=== PATIENT | female | born 1965 | race Caucasian/White ===

== ENCOUNTER → 2016-12-10 | Outpatient (CLI) | payer OTHER ==
--- NOTE | 2016-12-10 12:47 | MM ---
Reason for exam: screening (asymptomatic). Last mammogram was performed 3 years and 3 months ago. History: Family history of breast cancer in maternal aunt. Physical Findings: A clinical breast exam by your physician is recommended on an annual basis and results should be correlated with mammographic findings. MG Screening Mammo w CAD Bilateral CC and MLO view(s) were taken. Prior study comparison: December 15, 2014, mammogram, performed at [facility]. September 06, 2013, mammogram, performed at [facility]. There are scattered fibroglandular densities. There is no discrete abnormality. ASSESSMENT: Negative, BI-RAD 1 RECOMMENDATION: Routine screening mammogram of both breasts in 1 year.
== END | disposition home or self-care (01) ==
LOC: RADMAMWWP 10:02
PROVIDERS: ATTEND Internal Medicine
DX: Z12.31 Encounter for screening mammogram for malignant neoplasm of breast (principal)

== ENCOUNTER → 2018-05-14 | Outpatient (CLI) | payer BC ==
--- NOTE | 2018-05-17 11:21 | MM ---
Reason for exam: screening (asymptomatic). Last mammogram was performed 1 year and 5 months ago. History: Patient is postmenopausal. Family history of breast cancer in maternal aunt. Physical Findings: A clinical breast exam by your physician is recommended on an annual basis and results should be correlated with mammographic findings. MG 3D Screening Mammo W/Cad Bilateral CC and MLO view(s) were taken. Prior study comparison: December 10, 2016, bilateral MG screening mammo w CAD. December 15, 2014, mammogram, performed at [facility]. The breast tissue is almost entirely fat. No significant changes when compared with prior studies. ASSESSMENT: Benign, BI-RAD 2 RECOMMENDATION: Routine screening mammogram of both breasts in 1 year.
== END ==
LOC: RADMAMWWP 14:52
PROVIDERS: ATTEND Internal Medicine
DX: Z12.31 Encounter for screening mammogram for malignant neoplasm of breast (principal)
CPT/HCPCS: 77063; 77067

== ENCOUNTER → 2018-11-02 | Outpatient (CLI) | payer BC ==
--- NOTE | 2018-11-02 17:19 | CONS ---
CONSULTATION REASON FOR CONSULTATION: Insomnia. This is a 52-year-old female patient who is coming in for chronic insomnia management and treatment. The patient reports that she has chronic insomnia that has been going on for the past 15 years. She also has multiple other medical problems and comorbidities, most significant of which is history of depression, history of fibromyalgia, history of chronic anxiety. In regard to her depression, the patient has been working with her primary care physician, Dr. Polanco. More recently, due to active symptoms of depression, the patient has been placed on Cymbalta, and her dose has been increased up to 60 mg twice a day. She is feeling better. No feeling of worthlessness. Her mood seems to be much more elevated. As far as fibromyalgia, she is currently taking Lyrica 50 mg in the morning, and she takes Flexeril 10 mg at bedtime. On and off she takes Xanax for anxiety. In terms of chronic insomnia, the patient has been taking Lunesta 3 mg at bedtime. She typically tries to go to bed around 10 or 11 p.m. She takes her sleeping pills and the Flexeril after she goes to bed. She has no difficulty initiating sleep; however, 2 hours into sleep she will wake up. Sometimes she is successful in going back to sleep; other times she is unable to. She stays in bed until 6:00 in the morning. She averages somewhere between 4 and 5 hours of sleep and she feels that she needs to sleep more to get refreshed. During the day she does not take any naps. She is very busy doing other stuff, whether it is in the house or outside the house. No grinding of the teeth. Occasional restlessness in the lower extremities. She has been given Requip in the past, with bad side effects, and the patient ultimately quit the treatment. No history of sleepwalking or sleeptalking. She has chronic anxiety and occasional panic attacks. She also has occasional nighttime heartburn. She has also done sleepwalking in the past, probably related to Lunesta side effects. Her current Coalinga score is 3. She has maintained her weight; her weight is about 220. No snoring or gasping for air. No features of obstructive sleep apnea. She wakes up at least 4 to 6 times in the middle of the night, especially in the morning hours, and she stays in bed even after being awake. No history of motor vehicle accident because of feeling drowsy or sleepy. She has tried reading, which has calmed her down and helped with sleep induction. She has also tried to listen to music and TV, which made her sleep quality worse. No nighttime shortness of breath or chest pain. PAST MEDICAL HISTORY: 1. Depression. 2. Fibromyalgia. 3. Chronic anxiety. 4. Chronic insomnia. PAST SURGICAL HISTORY: Includes: 1. Left heel spur removed. 2. Lap band insertion and removal back in 2002 and 2005. 3. Partial hysterectomy. 4. Cholecystectomy. 5. Sleeve gastrectomy. 6. Kidney stone resection. DRUG ALLERGIES: SULFA. OUTPATIENT MEDICATION LIST: Includes: 1. Cymbalta 60 mg b.i.d. 2. Lyrica 50 mg p.o. daily. 3. Flexeril 10 mg at bedtime. 4. Xanax 0.25 p.r.n. 5. Lunesta 3 mg at bedtime. 6. Hydrocodone as needed. SOCIAL HISTORY: No history of alcoholism. No history of substance abuse. No history of smoking. No history of excessive alcohol ingestion. FAMILY HISTORY: Positive for coronary artery disease in her parents. REVIEW OF SYSTEMS: Twelve-point review of systems was done. Positive findings were all mentioned above in the history of present illness. The patient denies having any vivid dreams. No sleep paralysis. No hallucinations. No unusual behavior or movements. No seizure activity. No altered mentation. No chest pain. No shortness of breath. No cough or sputum production at nighttime. No heartburn. No falls. No unusual behavior. No suicidal ideation. No homicidal ideation. No crying episodes. PHYSICAL EXAMINATION: BP is 104/61, pulse 95, respirations 18, temperature 98.2, saturation 98% on room air. Height is 5 feet 5 inches. Weight is 222 and BMI 36.3. Coalinga score is 3. Neck size is 14-1/3 inches. GENERAL APPEARANCE: Calm, comfortable. Head is atraumatic, normocephalic. NECK: Supple. No JVD. No goiter or neck masses. LUNGS: Clear to auscultation. Heart sounds are regular rate and rhythm. Normal S1, S2. No S3, S4. No murmurs. ABDOMEN: Soft, nontender. No organomegaly. EXTREMITIES: No edema. No cyanosis or clubbing. Neurologically the patient is alert and oriented x3. No focal neurological deficit. PSYCHIATRIC: Positive for chronic depression and anxiety. IMPRESSION: 1. Chronic insomnia. The patient has comorbid insomnia, probably related to chronic depression, fibromyalgia and anxiety. In addition, the patient has misconceptions about sleep measures in general, and she has developed poor sleep habits which could have exacerbated her chronic insomnia. In summary, this patient has chronic comorbid insomnia and she is able to induce sleep; however, she has issues with sleep maintenance even while being on Lunesta 3 mg at bedtime. 2. Depression. On Cymbalta. 3. Fibromyalgia. On a combination of Lyrica and Flexeril. 4. Chronic anxiety. PLAN: I had a lengthy discussion with the patient. I discussed the treatment of chronic insomnia and I alluded specifically to cognitive behavioral therapy and pharmacotherapy. She was made aware that cognitive behavioral therapy has demonstrated equivalent results to pharmacotherapy, and the treatment effects of cognitive behavioral therapy are long-lasting. She was very interested in CBI, which is cognitive behavioral therapy. I went over sleep restrictions and stimulus control. These are the two measures that we need to implement in this patient to improve her symptoms of chronic insomnia. I gave her a sleep diary. I asked her to get out of bed if she is unable to fall asleep again to improve her sleep efficiency. Her time to go to bed will be kept somewhere between 11 p.m. and midnight, and she has to get out of bed around 5 to 6 a.m. in the morning. She will maintain a sleep diary to maintain her sleep efficiency above 90%. Will continue taking Lunesta 3 mg at bedtime with the understanding that this can cause some sleepwalking. Will move the Lyrica dose to nighttime and will take a Flexeril at bedtime also. Continue Cymbalta and take it in the morning. Will see her back in 4 weeks' time. I am hoping the measures of stimulus control and sleep restriction should improve the patient's sleep efficiency in general and improve her sleep consolidation at nighttime. She will be implementing good sleep hygiene measures. She will be avoiding any form of caffeinated beverages late in the evening or in the afternoon. All her sleep hygiene measures were discussed. No need for a sleep study at this point in time. She will be re-evaluated in 4 weeks' time, and I am hoping that we should be able to get her in a better sleep condition with cognitive behavioral therapy and keeping the same medication regimen for now. MMLAURYN / IJN: [id number] /
== END | disposition home or self-care (01) ==
LOC: SLEEP 14:06
PROVIDERS: ATTEND Internal Medicine Critical Care Medicine
DX: G47.00 Insomnia, unspecified (principal); F32.9 Major depressive disorder, single episode, unspecified; F41.9 Anxiety disorder, unspecified; M79.7 Fibromyalgia; Z79.899 Other long term (current) drug therapy
CPT/HCPCS: 99211

== ENCOUNTER → 2018-12-16 | Outpatient (CLI) | payer BC ==
[2018-12-16 11:44] LABS: Basophils # (A) 0.1 k/uL (0-0.2); Basophils % (A) 1 %; Eosinophils # (A) 0.3 k/uL (0-0.7); Eosinophils % (A) 7 %; HCT 40.1 % (34.0-46.0); HGB 12.5 gm/dL (11.4-16.0); Hypochromasia Slight; Lymphocytes # (A) 1.6 k/uL (1.0-4.8); Lymphocytes % (A) 38 %; MCH 25.9 pg (25.0-35.0); MCV 83.5 fL (80.0-100.0); Mean Platelet Volume 6.6; Monocytes # (A) 0.3 k/uL (0-1.0); Monocytes % (A) 6 %; Neutrophils # (A) 1.9 k/uL (1.3-7.7); Neutrophils % (A) 44 %; Platelet Count 321 k/uL (150-450); RBC 4.81 m/uL (3.80-5.40); RDW 14.7 % (11.5-15.5); WBC 4.3 k/uL (3.8-10.6)
[2018-12-16 13:57] LABS: Erythrocyte Sedimentation Rate 15 mm/hr (0-20)
[2018-12-16 15:58] LABS: Vitamin D 25 Hydroxy 15.3 ng/mL (30.0-100.0)
[2018-12-16 16:02] LABS: Albumin 4.2 g/dL (3.80-4.90); Albumin/Globulin Ratio 1.56 (1.60-3.17); Anion Gap 8.5 mmol/L (4.00-12.00); Calcium 9.1 mg/dL (8.7-10.3); Carbon Dioxide 27.5 mmol/L (21.6-31.8); Globulin 2.7 g/dL (1.6-3.3); LDL Cholesterol,Calculated 105.4 mg/dL (0.0-131.0); Phosphorus 3.9 mg/dL (2.4-5.1); Potassium 4.1 mmol/L (3.5-5.5); Total Bilirubin 0.4 mg/dL (0.3-1.2); Total Protein 6.9 g/dL (6.2-8.2); VLDL Calculation 49.6 mg/dL (5.00-40.00)
== END | disposition home or self-care (01) ==
LOC: LABWHC1 11:05
PROVIDERS: ATTEND Internal Medicine
DX: E88.81 Metabolic syndrome and other insulin resistance (principal); M79.7 Fibromyalgia; E55.9 Vitamin D deficiency, unspecified
CPT/HCPCS: 36415; 80053; 80061; 80069; 82306; 85025; 85652; 86038

== ENCOUNTER → 2018-12-21 | Outpatient (CLI) | payer BC ==
--- NOTE | 2018-12-21 20:25 | PN ---
PROGRESS NOTE This patient is a 53-year-old female who was seen in consultation for chronic insomnia. The patient's chronic insomnia is related to chronic depression, fibromyalgia and anxiety. She also had some misconceptions about sleep measures in general. During her last visit, I noted that the patient was taking a combination of Flexeril and Lyrica for fibromyalgia and she was on Cymbalta for depression and was taking Lunesta 3 mg for insomnia. I counseled her mainly on cognitive behavioral therapy. I explained to her various options, such as sleep restriction and stimulus control. She was implementing these measures and she was doing well with the help of her other medications until around a month ago, when she was unable to refill her Lyrica and Lunesta, and her symptoms got worse. During this time, she introduced CBD oil, which she takes in the evening, and this has a lot of her anxiety and pain and her symptoms of insomnia. Nevertheless, she is unable to achieve a good 5-6 hours, especially now that she does not have her Lunesta refilled. She is still going to bed late, around 2 or 3 a.m., and she is getting up between 7 and 8 a.m. in the morning. She is averaging 4-5 hours of sleep, and she feels that she was doing much better while on the pharmacotherapy and cognitive behavior therapy combination as advised for her earlier. REVIEW OF SYSTEMS: Fourteen-point review of systems was done. The positive findings are all mentioned in the history of present illness. As mentioned earlier, she has history of depression, yet her symptoms are not active for now. She has chronic fibromyalgia-related pain. No active anxiety symptoms. Insomnia is still active. No nausea or vomiting. No abdominal pain. No chest pain. No heartburn at nighttime. No recent weight gain or weight loss. No substance abuse. PHYSICAL EXAMINATION: BP is 145/97, pulse 79, respirations 16, temperature 98.0, saturation 95% on room air. Weight is 223. Height is 5 feet 5 inches and BMI 36.5. Hubbard score is 3. GENERAL APPEARANCE: Calm, comfortable. Head is atraumatic, normocephalic. NECK: Supple. There is no JVD. No goiter or neck masses. Mallampati class IV. LUNGS: Clear to auscultation. HEART: Heart sounds are regular rate and rhythm. Normal S1, S2. No S3, S4. No murmurs. ABDOMEN: Soft, nontender. No organomegaly. EXTREMITIES: No edema. No cyanosis or clubbing. NEUROLOGIC: Alert and oriented x3. No focal neurological deficits. PSYCHIATRIC: Negative for acute psychosis. Positive for depression and anxiety. IMPRESSION: 1. Chronic insomnia. As mentioned, the patient has chronic comorbid insomnia related to comorbidities which include fibromyalgia, anxiety and depression. In addition, she has sleep misconceptions and poor sleep hygiene measures. 2. Depression. 3. Fibromyalgia. 4. Chronic anxiety. PLAN: Refill the patient's Lunesta and Lyrica. Lunesta was restarted at 3 mg to be taken at bedtime. In addition to that, she will be taking Lyrica 50 mg p.o. b.i.d. regarding her fibromyalgia. In regards to her chronic insomnia, we are still implementing cognitive behavioral therapy. We are still implementing sleep restriction and stimulus control. The desired time to go to sleep is still midnight, and she will be getting out of bed around 6 a.m. in the morning. CBD oil has also helped her in sleep induction, maintenance and control of her anxiety and depression and pain. I do not see any contraindication of taking her medication in addition to CBD oil. Implement good sleep hygiene measures. Avoid naps during the day. We will continue to follow. She will continue filling up her sleep diary and she will see me back in a few months' time in followup. MMKAYLEEL / GENESISN: [id number] /
== END ==
LOC: SLEEP 13:25
PROVIDERS: ATTEND Internal Medicine Critical Care Medicine
DX: F51.04 Psychophysiologic insomnia (principal); M79.7 Fibromyalgia; F41.9 Anxiety disorder, unspecified; F32.9 Major depressive disorder, single episode, unspecified; Z79.899 Other long term (current) drug therapy

== ENCOUNTER → 2019-01-13 | Outpatient (CLI) | payer BC ==
--- NOTE | 2019-01-14 08:19 | CT ---
EXAMINATION TYPE: CT abdomen pelvis w con DATE OF EXAM: 01/13/2019 COMPARISON: None HISTORY: Umbilical hernia without obstruction CT DLP: 1916 mGycm CONTRAST: CT scan of the abdomen and pelvis is performed with Oral Contrast and with IV Contrast, patient injec lisa with 100ml mL of Isovue 300. FINDINGS: LUNG BASES-: No visible nodule. No infiltrate. LIVER/GB: The gallbladder surgically absent. There is evidence of hepatic steatosis. No space occu pying hepatic lesion. Biliary tree is of normal caliber. PANCREAS: No inflammation. No distinct mass. SPLEEN: No splenic enlargement. No lesion seen. ADRENALS: No nodule. No thickening. KIDNEYS/BLADDER: No hydronephrosis. No nephrolithiasis. No distinct renal mass. Urinary bladder g rossly unremarkable. BOWEL: Normal appendix. Normal bowel caliber. No inflammation. Hiatal hernia noted. GENITAL ORGANS: No gross abnormality. LYMPH NODES: No greater than 1cm abdominal or pelvic lymph nodes are appreciated. AORTA: No significant abnormality. OSSEOUS STRUCTURES: No significant abnormality is seen. OTHER: Small fat-containing umbilical hernia. IMPRESSION: 1. Patent steatosis. 2. Small fat-containing umbilical hernia. 3. Hiatal hernia noted.
== END | disposition home or self-care (01) ==
LOC: RADCTMAIN 15:28
PROVIDERS: ATTEND Surgery
DX: K42.9 Umbilical hernia without obstruction or gangrene (principal); K44.9 Diaphragmatic hernia without obstruction or gangrene; K76.0 Fatty (change of) liver, not elsewhere classified
CPT/HCPCS: 74177; Q9967

== ENCOUNTER → 2019-01-31 | Outpatient (CLI) | payer BC ==
[2019-01-31 14:48] LABS: HCT 37.2 % (34.0-46.0); HGB 11.8 gm/dL (11.4-16.0); Hypochromasia Slight; MCH 26.1 pg (25.0-35.0); MCHC 31.9 g/dL (31.0-37.0); Mean Platelet Volume 6.8; Platelet Count 334 k/uL (150-450); RBC 4.53 m/uL (3.80-5.40); RDW 15.2 % (11.5-15.5)
== END | disposition home or self-care (01) ==
LOC: LABPAT 14:05
PROVIDERS: ATTEND Surgery
DX: Z01.812 Encounter for preprocedural laboratory examination (principal)
CPT/HCPCS: 36415; 85027

== ENCOUNTER 2019-02-02 06:33 | Observation (INO) | payer BC ==
[~2019-02-02 06:33] MED LIST: DEXAMETHASONE SOD PHOSPHATE 10 MG/ML 1 ML VIAL IV ONE; HEPARIN SODIUM,PORCINE 5,000 UNIT/ML 1 ML VIAL SQ ONE; LIDOCAINE 1% 20 ML VIAL (10MG/ML) FOR IV START INTRADERMA PRN; ONDANSETRON 4 MG/2 ML VIAL IVP ONE; SCOPOLAMINE 1.5MG/72HR PATCH TRANSDERM ONE
[2019-02-02] MEDS: LACTATED RINGERS 1,000 ML IV SCH ×2 (07:17→12:24)
[2019-02-02] MEDS ORDERED: MIDAZOLAM (PF) 2 MG/2 ML VIAL IV ONE (07:20)
[2019-02-02] MEDS ORDERED: BUPIVACAIN-EPI 0.25%-1:200,000 30 ML VIAL SQ ONE ×2 (07:35→08:21)
[2019-02-02] MEDS ORDERED: PROPOFOL 10 MG/ML 20 ML VIAL IV ONE (07:36)
[2019-02-02] MEDS ORDERED: KETAMINE 10 MG/ML 20 ML VIAL ONE (07:36)
[2019-02-02] MEDS ORDERED: NEOSTIGMINE 1 MG/ML 10 ML VIAL ONE (07:36)
[2019-02-02] MEDS ORDERED: ROCURONIUM BROMIDE 10 MG/ML 10 ML VIAL IV ONE (07:36)
[2019-02-02] MEDS ORDERED: GLYCOPYRROLATE 0.2 MG/ML 2 ML VIAL ONE (07:36)
[2019-02-02] MEDS ORDERED: SUCCINYLCHOLINE CHLORIDE 100 MG/5 ML SYR IV ONE (07:36)
[2019-02-02] MEDS ORDERED: MIDAZOLAM 2 MG/2 ML VIAL ONE (07:36)
[2019-02-02] MEDS ORDERED: ePHEDrine SULFATE/0.9% NACL/PF 50 MG/5 ML SYRINGE IV ONE (07:36)
[2019-02-02] MEDS ORDERED: fentaNYL (PF) 50 MCG/ML 2 ML AMP ONE (07:36)
[2019-02-02] MEDS ORDERED: LIDOCAINE 1% INJ 10MG/ML (20 ML MDV) ONE (07:36)
--- NOTE | 2019-02-02 07:53 | P.GSHP ---
History of Present Illness H&P Date: 02/02/19 Chief Complaint: Umbilical hernia This a 53-year-old female who has complaints of umbilical pain. Her recent CAT scan shows evidence of umbilical hernia. She presents today for laparoscopic robotic-assisted repair. Past Medical History Past Medical History: GERD/Reflux, Osteoarthritis (OA) Additional Past Medical History / Comment(s): varicose veins, gastric sleeve., watches diet for gerd., umbilical hernia. History of Any Multi-Drug Resistant Organisms: None Reported Past Surgical History: Bariatric Surgery, Cholecystectomy, Hysterectomy Additional Past Surgical History / Comment(s): hemorrhoidectomy, Lap Band, Lap Band Repair, Removal of lap band., Gastric Sleeve (2003?) Past Anesthesia/Blood Transfusion Reactions: Previous Problems w/ Anesthesia, Motion Sickness Additional Past Anesthesia/Blood Transfusion Reaction / Comment(s): DIFFICULTY WAKING UP. PATIENT ADOPTED- UNSURE OF FAMILY HX. Past Psychological History: Anxiety, Depression Smoking Status: Never smoker Past Alcohol Use History: Rare Past Drug Use History: Marijuana Additional Drug Use History / Comment(s): CBD OIL - Past Family History Mother Family Medical History: Cancer Additional Family Medical History / Comment(s): PATIENT ADOPTED Medications and Allergies Home Medications Medication Instructions Recorded Confirmed Type ALPRAZolam [Xanax] 0.25 mg PO BID PRN 01/28/19 02/02/19 History Cannabidiol (Cbd) Extract 1 dose PO DAILY PRN 01/28/19 02/02/19 History [Epidiolex] Cholecalciferol (Vitamin D3) 10,000 unit PO DIRECTED 01/28/19 02/02/19 History [Vitamin D3] Cyclobenzaprine [Flexeril] 10 mg PO HS 01/28/19 02/02/19 History DULoxetine HCL [Cymbalta] 60 mg PO BID 01/28/19 02/02/19 History Hydrocodone Liquid 1 dose PO Q4HR PRN 01/28/19 02/02/19 History Pregabalin [Lyrica] 50 mg PO HS 01/28/19 02/02/19 History Vitamin B- 12 Injection 1 dose PO QMONTH 01/28/19 02/02/19 History Allergies Allergy/AdvReac Type Severity Reaction Status Date / Time Sulfa (Sulfonamide Allergy Unknown Rash/Hives Verified 02/02/19 07:25 Antibiotics) Surgical - Exam Vital Signs Temp Pulse Resp BP Pulse Ox 97.5 F L 85 16 126/80 98 02/02/19 07:17 02/02/19 07:17 02/02/19 07:17 02/02/19 07:17 02/02/19 07:17 - General well developed, well nourished, no distress - Eyes PERRL - ENT normal pinna - Neck no masses - Respiratory normal expansion, normal respiratory effort - Cardiovascular Rhythm: regular - Abdomen Abdomen: soft, non tender Hernia: umbilical Assessment and Plan Assessment: Umbilical hernia. We'll perform laparoscopic robotic-assisted repair.
[2019-02-02] MEDS: ceFAZolin IN SWFI 2 GM/20 ML SYRINGE IVP ONE ×2 (08:10→08:15)
[2019-02-02] MEDS ORDERED: LACTATED RINGERS 1,000 ML IV ONE (08:46)
[2019-02-02] MEDS: HYDROmorphone 0.5 MG/0.5 ML SYRINGE IVP PRN ×5 (09:46→10:49)
--- NOTE | 2019-02-02 09:56 | P.OP ---
Date of Procedure: 02/02/19 Preoperative Diagnosis: Umbilical hernia Postoperative Diagnosis: Umbilical hernia Incisional hernia Procedure(s) Performed: Laparoscopic robotic system repair of umbilical hernia Laparoscopic possible repair of incisional hernia Anesthesia: MER Surgeon: Nas Otero Estimated Blood Loss (ml): 5 Pathology: none sent Condition: stable Disposition: PACU Description of Procedure: The patient was placed on the operating table in the supine position. He received general anesthesia. His abdomen was prepped and draped usual fashion. Using a 5 mm optical trocar under direct visualization the peritoneal cavity was entered in the left upper quadrant. The abdomen was then insufflated. The laparoscope was placed back into the peritoneal cavity. Next a 8 mm robotic trocar was placed in the left lower quadrant and a 12 mm robotic trocar was placed in the left lateral position. The original 5 mm trocar was exchanged for a 8 mm robotic trocar. The patient's placed in the left side up position. And the patient was docked to the robot. The incisional hernia was visualized. There was omentum within the incisional hernia. Using the cautery the omentum was reduced. Using hook cautery the peritoneum over the incisional hernia was excised. The patient also had an umbilical hernia. The fascial opening of the umbilical incisional hernia was was repaired using 0V LOC suture. Next a piece of 11 cm round ventral light ST mesh was placed into the. Cavity and secured with 2 OV lock suture. The patient was undocked the robot. The needles were retrieved. The fascia of the 12 mm trocar site was closed with 0 Ethibond suture. Skin was closed interrupted 3-0 Monocryl suture. Dermabond dressings was applied. Patient tolerated procedure well and was sent to recovery room stable condition.
[2019-02-02] MEDS ORDERED: KETOROLAC 30 MG/ML 1 ML VIAL IVP ONE (10:15)
[2019-02-02] MEDS: fentaNYL (PF) 50 MCG/ML 2 ML AMP IV ONE ×2 (10:20→10:50)
[2019-02-02] MEDS ORDERED: NALOXONE 0.4 MG/ML 1 ML VIAL IV PRN (11:45)
[2019-02-02] MEDS ORDERED: ONDANSETRON 4 MG/2 ML VIAL IVP PRN (11:45)
[2019-02-02] MEDS ORDERED: ACETAMINOPHEN TAB 325 MG TAB PO PRN (11:45)
[2019-02-02] MEDS ORDERED: HYDROmorphone 0.5 MG/0.5 ML SYRINGE IVP PRN (11:45)
[2019-02-02] MEDS ORDERED: HYDROcodone/APAP 5-325MG 1 EACH TAB PO PRN (11:45)
[2019-02-02] MEDS ORDERED: traMADol 50 MG TAB PO PRN (11:45)
[2019-02-02 13:38] VITALS: BMI 36.6
[2019-02-02] MEDS ORDERED: HYDROcodone/APAP 15 ML SOLUTION PO PRN (15:00)
[2019-02-02] MEDS ORDERED: ALPRAZolam 0.25 MG TAB PO PRN (15:50)
[2019-02-02] MEDS: KETOROLAC 30 MG/ML 1 ML VIAL IVP SCH ×2 (16:18→21:42)
[2019-02-02] MEDS ORDERED: PREGABALIN 50 MG CAP PO SCH (21:00)
[2019-02-02] MEDS ORDERED: CYCLOBENZAPRINE 10 MG TAB PO SCH (21:00)
[2019-02-02] MEDS: LACTATED RINGERS 1,000 ML IV ONE (21:41)
[2019-02-02] MEDS: DOCUSATE 100 MG CAP PO SCH (21:42)
[2019-02-02] MEDS: DULoxetine HCL 60 MG CAPSULE.DR PO SCH (21:42)
[2019-02-02] MEDS ORDERED: SODIUM CHLORIDE 0.9% 1,000 ML IV ONE (22:11)
--- NOTE | 2019-02-02 23:03 | CONS ---
CONSULTATION DATE OF CONSULTATION: February 02, 2019. DATE OF SERVICE: February 02, 2019. CONSULTATION: This is a pleasant 53-year-old patient of Dr. Sagar Polanco. Chronic stable medical conditions include GERD, osteoarthritis, varicose veins, depression, fibromyalgia. The patient is on pain medications, with a contract with Dr. Sagar Polanco. The patient did undergo incisional umbilical hernia today by Dr. Otero. Has pain at the operative site. No nausea, vomiting. No fever. No chills. Has been up to the bathroom. Diet has already been advanced. No fever. No chills. REVIEW OF SYSTEMS: CONSTITUTIONAL: None. HEENT: None. RESPIRATORY: None. CARDIOVASCULAR: None. GENITOURINARY: None. MUSCULOSKELETAL: Arthritic pain in the joints, muscles. DERMATOLOGICAL, HEMATOLOGIC and LYMPHATIC none. PSYCHIATRY none. NEUROLOGICAL none. PAST HISTORY: GERD, osteoarthritis, varicose veins, depression, fibromyalgia. PAST SURGICAL HISTORY: Bariatric surgery, cholecystectomy, hernia repair, hemorrhoidectomy, lap band, lap band repair, removal of lap band, gastric sleeve. PSYCH HISTORY: Anxiety, depression. SOCIAL HISTORY: Does not smoke. Alcohol occasionally. Adopted. . FAMILY HISTORY: Cancer type unknown. HOME MEDICATIONS: 1. Vitamin B12 monthly. 2. Lyrica 50 mg q.h.s. 3. Hydrocodone liquid q.4h p.r.n. 4. Cymbalta 60 mg b.i.d. 5. Flexeril 10 mg q.h.s. 6. Vitamin D3 10,000 units as directed. 7. Epidiolex 1 dose daily p.r.n. 8. Xanax 0.25 p.o. b.i.d. p.r.n. 9. Norman 5 one tablet q.6 p.r.n. 10.Colace 100 mg b.i.d. ALLERGIES: SULFUR. PHYSICAL EXAMINATION: VITAL SIGNS: Temperature 97.7, pulse 106, respirations 16, blood pressure 126/78, pulse ox 95% on 2 L. GENERAL APPEARANCE: Well built, BMI 36.7. Sitting up in discomfort. EYES: Pupils are equal. Conjunctivae normal. HEENT: External appearance of nose and ears normal. Oral cavity normal. NECK: JVD not raised. Mass not palpable. RESPIRATORY effort normal. LUNGS: Clear. CARDIOVASCULAR: 1st and 2nd sounds normal. No edema. ABDOMEN: Tender with binder in place. Liver and spleen not palpable. LYMPHATICS: No lymph nodes palpable in the neck and axilla. PSYCHIATRY: Alert and oriented times three. Mood and affect, slightly anxious- appearing. NEUROLOGICAL: Pupils equal. Cranial nerves grossly intact. Power and sensation grossly intact. INVESTIGATIONS: White count 5, hemoglobin 11.8, platelets 334. ASSESSMENT: 1. Status post incisional umbilical hernia repair. 2. Obesity; BMI 36.7. 3. Gastroesophageal reflux disease. 4. Primary osteoarthritis. 5. Varicose veins, chronic. 6. Depression not otherwise specified. 7. Chronic fibromyalgia with the pain contract. PLAN: Home medications can be renewed. Current acute pain per Dr. Otero. Otherwise patient is medically stable. Should follow up with Dr. Sagar Polanco on discharge. The patient also has Venodyne boots. Care was discussed with the patient. Thank you Dr. Otero. Copy to Dr. Sagar Polanco. MMODL / IJN: [id number] /
[2019-02-03] MEDS: LACTATED RINGERS 1,000 ML IV ONE (03:58)
[2019-02-03] MEDS: KETOROLAC 30 MG/ML 1 ML VIAL IVP SCH ×2 (03:58→10:05)
[2019-02-03 05:54] VITALS: PULSE 99; TEMP 98.2
[2019-02-03] MEDS ORDERED: ENOXAPARIN 40 MG/0.4 ML SYRINGE SQ SCH (09:00)
[2019-02-03] MEDS ORDERED: PANTOPRAZOLE 40 MG/10 ML VIAL IV SCH (09:00)
[2019-02-03] MEDS: DOCUSATE 100 MG CAP PO SCH (09:38)
[2019-02-03] MEDS: DULoxetine HCL 60 MG CAPSULE.DR PO SCH (09:39)
--- NOTE | 2019-02-03 11:00 | P.DS ---
Providers Date of admission: 02/02/19 23:16 Expected date of discharge: 02/03/19 Attending physician: Nas Otero Consults: 02/02/19 11:45 Consult Physician Routine Consulting Provider: Romulo Rosa Consult Reason/Comments: Medical management Do you want consulting provider notified?: Yes Primary care physician: [facility] Course: This a 53-year-old female who underwent laparoscopic robotic-assisted repair of umbilical hernia. Patient did well postoperatively. Please see hospital chart for details. Procedures: Operative Report robotic-assisted repair of umbilical and incisional hernia Patient Condition at Discharge: Good Plan - Discharge Summary Discharge Rx Participant: No New Discharge Prescriptions: New Docusate [Colace] 100 mg PO BID #20 capsule HYDROcodone/APAP 5-325MG [Genes[place] 5-325] 1 tab PO Q6HR PRN #10 tab PRN Reason: Pain No Action DULoxetine HCL [Cymbalta] 60 mg PO BID ALPRAZolam [Xanax] 0.25 mg PO BID PRN PRN Reason: Anxiety Cyclobenzaprine [Flexeril] 10 mg PO HS Pregabalin [Lyrica] 50 mg PO HS Hydrocodone Liquid 1 dose PO Q4HR PRN PRN Reason: Pain Vitamin B- 12 Injection 1 dose PO QMONTH Cholecalciferol (Vitamin D3) [Vitamin D3] 10,000 unit PO DIRECTED Cannabidiol (Cbd) Extract [Epidiolex] 1 dose PO DAILY PRN PRN Reason: Pain Discharge Medication List ALPRAZolam [Xanax] 0.25 mg PO BID PRN 01/28/19 [History] Cannabidiol (Cbd) Extract [Epidiolex] 1 dose PO DAILY PRN 01/28/19 [History] Cholecalciferol (Vitamin D3) [Vitamin D3] 10,000 unit PO DIRECTED 01/28/19 [History] Cyclobenzaprine [Flexeril] 10 mg PO HS 01/28/19 [History] DULoxetine HCL [Cymbalta] 60 mg PO BID 01/28/19 [History] Hydrocodone Liquid 1 dose PO Q4HR PRN 01/28/19 [History] Pregabalin [Lyrica] 50 mg PO HS 01/28/19 [History] Vitamin B- 12 Injection 1 dose PO QMONTH 01/28/19 [History] Docusate [Colace] 100 mg PO BID #20 capsule 02/02/19 [Rx] HYDROcodone/APAP 5-325MG [Genesee 5-325] 1 tab PO Q6HR PRN #10 tab 02/02/19 [Rx] Follow up Appointment(s)/Referral(s): Nas Otero MD [STAFF PHYSICIAN] - 02/10/19 2:20 pm Patient Instructions/Handouts: *Surgery [facility] - (Anesthesia) Discharge Instructions Outpatient Surgery, Laparoscopic Herniorrhaphy (DC) Activity/Diet/Wound Care/Special Instructions: NO LIFTING Please leave prineo tape in place over incisions - it will fall off on its own as the incisions help may shower tomorrow wear abdominal binder in place except for showering use incentive spirometer by taking 10 deep breaths every hour while awake
[2019-02-03 13:03] VITALS: BP 123/81; RESP 20
[2019-02-04] MEDS ORDERED: PANTOPRAZOLE 40 MG TABLET PO SCH (09:00)
== END 2019-02-03 13:09 | disposition home or self-care (01) ==
LOC: OR 06:33 → 6PED 09:22 → OR 23:15 → 6PED 23:16
PROVIDERS: ADMIT Surgery; ATTEND Surgery
DX: K42.9 Umbilical hernia without obstruction or gangrene (principal); K43.2 Incisional hernia without obstruction or gangrene; K21.9 Gastro-esophageal reflux disease without esophagitis; F41.9 Anxiety disorder, unspecified; E66.9 Obesity, unspecified; Z68.36 Body mass index [BMI] 36.0-36.9, adult; I83.90 Asymptomatic varicose veins of unspecified lower extremity; M19.91 Primary osteoarthritis, unspecified site; M79.7 Fibromyalgia; Z98.84 Bariatric surgery status; Z90.49 Acquired absence of other specified parts of digestive tract; F32.9 Major depressive disorder, single episode, unspecified; Z79.899 Other long term (current) drug therapy; Z79.891 Long term (current) use of opiate analgesic; Z88.2 Allergy status to sulfonamides; Z80.9 Family history of malignant neoplasm, unspecified
CPT/HCPCS: 49654; 49652; G0378 ×2; C1781; J1644; J1100; J2405; J1650; J3010; J1885 ×2; C9113; J1170 ×2; J0690; J2250

== ENCOUNTER → 2019-09-01 | Outpatient (CLI) | payer BC ==
--- NOTE | 2019-09-02 14:12 | MM ---
Reason for exam: screening (asymptomatic). Last mammogram was performed 1 year and 4 months ago. History: Patient is postmenopausal. Family history of breast cancer in maternal aunt. Physical Findings: A clinical breast exam by your physician is recommended on an annual basis and results should be correlated with mammographic findings. MG 3D Screening Mammo W/Cad Bilateral CC and MLO view(s) were taken. Prior study comparison: May 14, 2018, bilateral MG 3d screening mammo w/cad. December 10, 2016, bilateral MG screening mammo w CAD. There are scattered fibroglandular densities. There is no discrete abnormality. ASSESSMENT: Negative, BI-RAD 1 RECOMMENDATION: Routine screening mammogram of both breasts in 1 year.
== END ==
LOC: RADMAMWWP 11:01
PROVIDERS: ATTEND Internal Medicine
DX: Z12.31 Encounter for screening mammogram for malignant neoplasm of breast (principal)
CPT/HCPCS: 77063; 77067

== ENCOUNTER → 2021-09-03 | Outpatient (CLI) | payer OTHER ==
--- NOTE | 2021-09-05 10:21 | MM ---
Reason for exam: screening (asymptomatic). Last mammogram was performed 2 years ago. History: Patient is postmenopausal. Family history of breast cancer in maternal aunt. Physical Findings: A clinical breast exam by your physician is recommended on an annual basis and results should be correlated with mammographic findings. MG 3D Screening Mammo W/Cad Bilateral CC, MLO, and XCCL view(s) were taken. Prior study comparison: September 01, 2019, bilateral MG 3d screening mammo w/cad. May 14, 2018, bilateral MG 3d screening mammo w/cad. There are scattered fibroglandular densities. Benign appearing bilateral calcifications. There is chronic nodularity in the right breast, stable. No significant changes when compared with prior studies. ASSESSMENT: Benign, BI-RAD 2 RECOMMENDATION: Routine screening mammogram of both breasts in 1 year.
== END | disposition home or self-care (01) ==
LOC: RADMAMWWP 14:11
PROVIDERS: ATTEND Family Medicine
DX: Z12.31 Encounter for screening mammogram for malignant neoplasm of breast (principal); Z78.0 Asymptomatic menopausal state; Z80.3 Family history of malignant neoplasm of breast
CPT/HCPCS: 77063; 77067

== ENCOUNTER → 2023-09-10 | Outpatient (CLI) | payer MEDICARE ==
--- NOTE | 2023-09-11 20:19 | MM ---
Reason for Exam: Screening (asymptomatic). Last mammogram was performed 2 year(s) and 0 month(s) ago. Patient History: Menarche at age 12. First Full-Term at age 18. Hysterectomy at age 40. Postmenopausal. Maternal aunt had breast cancer. Risk Values: [place] 5 year model risk: 1.0%. NCI Lifetime model risk: 5.6%. Prior Study Comparison: 05/14/2018 Bilateral Screening Mammogram, [facility]. 09/01/2019 Bilateral Screening Mammogram, [facility]. 09/03/2021 Bilateral Screening Mammogram, [facility]. Tissue Density: The breast tissue is almost entirely fat. Findings: Analyzed By CAD. There is no suspicious group of microcalcifications or new suspicious mass in either breast. Overall Assessment: Negative, BI-RAD 1 Management: Screening Mammogram of both breasts in 1 year. . Patient should continue monthly self-breast exams. A clinical breast exam by your physician is recommended on an annual basis. This exam should not preclude additional follow-up of suspicious palpable abnormalities. Note on [place] scores and lifetime risk: 1. A [place] score greater than 3% is considered moderate risk. If this is the case, consider specialist referral to assess eligibility for a risk reducing agent. 2. If overall lifetime risk for the development of breast cancer is 20% or higher, the patient may qualify for future screening with alternating mammogram and breast MRI. Electronically signed and approved by: Dulce De M.D. Radiologist
== END | disposition home or self-care (01) ==
LOC: RADMAMWWP 12:59
PROVIDERS: ATTEND Family Medicine
DX: Z12.31 Encounter for screening mammogram for malignant neoplasm of breast (principal); Z80.3 Family history of malignant neoplasm of breast; Z78.0 Asymptomatic menopausal state
CPT/HCPCS: 77063; 77067

== ENCOUNTER → 2023-10-21 | Outpatient (CLI) | payer MEDICARE ==
--- NOTE | 2023-10-22 14:00 | MR ---
EXAMINATION TYPE: MR knee LT wo con DATE OF EXAM: 10/21/2023 COMPARISON: NONE HISTORY: Left knee pain and swelling for years per patient TECHNIQUE: Multiplanar, multisequence images of the knee is performed without IV contrast. FINDINGS: MEDIAL MENISCUS: Medial extrusion medial meniscus on coronal images. Triangular and horizontal increa sed signal posterior horn extends to the inferior articular surface on sagittal image 25. LATERAL MENISCUS: Anterior and posterior horns are intact without tear. CRUCIATE LIGAMENTS: The anterior and posterior cruciate ligaments are intact and unremarkable. COLLATERAL LIGAMENTS: The medial collateral ligament and lateral collateral ligament complex are inta ct. Medial bulging medial collateral ligament with fluid particularly along the deeper fibers. EXTENSOR MECHANISM: Visualized quadriceps and patellar tendons are intact. Large anterior superior an d anterior inferior bony projections EFFUSION: Small size suprapatellar joint effusion. POPLITEAL CYST: No popliteal/humphreys cyst. TRICOMPARTMENT SPACES: Moderate tricompartment joint space loss and spurring. CARTILAGE: Chondromalacia patella with areas of full-thickness cartilaginous loss along the posterior patellar pole. Significant cartilaginous loss medial tibiofemoral compartment. BONE MARROW SIGNAL: No focal abnormal marrow signal is appreciated. OTHER: No additional significant abnormality is appreciated. IMPRESSION: 1. 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 2. Full-thickness tear posterior horn of medial meniscus. 3. Mild to moderate MCL sprain injury. 4. Small-size suprapatellar joint effusion.
== END | disposition home or self-care (01) ==
LOC: RADMRIMAIN 20:15
PROVIDERS: ATTEND Orthopaedic Surgery
DX: S83.242A Other tear of medial meniscus, current injury, left knee, initial encounter (principal); M17.12 Unilateral primary osteoarthritis, left knee; M25.462 Effusion, left knee

== ENCOUNTER → 2023-12-15 | Outpatient (CLI) | payer MEDICARE ==
--- NOTE | 2023-12-21 12:57 | MR ---
EXAMINATION TYPE: MR ankle RT wo con DATE OF EXAM: 12/15/2023 COMPARISON: Outside right foot x-rays October 19, 2023 HISTORY: Right ankle pain back of ankle and heel x6 weeks, limited movement Standard multiplanar, multisequence MRI departmental protocol Multiplanar, multisequence images of the right ankle were acquired without contrast. FINDINGS: Increased T2 signal or osseous edema involving the posterior superior aspect of the calcane us. No serpiginous diminished T1 signal to suggest stress fracture. Talar dome is maintained. No os t rigonum. Fairly moderate size joint effusion is present. Anterior tibiofibular and anterior talofibular ligaments are intact. Posterior syndesmosis intact axi al image 27. Medial deltoid ligament intact. Posterior tibial tendon intact. The peroneal tendons are grossly intact. Anterior extensor tendons ar e intact. There is thickened convex distal Achilles tendon with increased signal distally. There is large bony projection enthesopathy from the posterior superior calcaneus. Increased fluid in the retrocalcaneal bursa is seen. Hagland exostosis is present sagittal image 17. Large inferior calcaneal spur. Visualized portion of plantar fascia is intact. Hoffa's fat pad is maintained midfoot structures show moderate narrowing and spurring. Lisfranc joint s are maintained. Some subchondral cystic change at base of fourth metatarsal is seen. IMPRESSION: 1. 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 Some adjacent abnormal bone ma rrow edema in the posterior superior calcaneus is seen.
== END | disposition home or self-care (01) ==
LOC: RADMRIMAIN 18:59
PROVIDERS: ATTEND Orthopaedic Surgery
DX: M25.571 Pain in right ankle and joints of right foot (principal); M89.9 Disorder of bone, unspecified; R60.9 Edema, unspecified

== ENCOUNTER → 2024-10-25 | Outpatient (CLI) | payer MEDICARE ==
--- NOTE | 2024-10-25 18:06 | MM ---
Reason for Exam: Screening (asymptomatic). Last mammogram was performed 1 year(s) and 2 month(s) ago. Patient History: Menarche at age 12. First Full-Term at age 18. Hysterectomy at age 40. Postmenopausal. Maternal aunt had breast cancer. Risk Values: [place] 5 year model risk: 1.0%. NCI Lifetime model risk: 5.5%. Prior Study Comparison: 09/01/2019 Bilateral Screening Mammogram, [facility]. 09/03/2021 Bilateral Screening Mammogram, [facility]. 09/10/2023 Bilateral MG 3D screening mammo w/cad, [facility]. Tissue Density: The breasts are almost entirely fatty. Findings: Analyzed By CAD. There is no suspicious group of microcalcifications or new suspicious mass in either breast. Overall Assessment: Negative, BI-RAD 1 Management: Screening Mammogram of both breasts in 1 year. Patient should continue monthly self-breast exams. A clinical breast exam by your physician is recommended on an annual basis. This exam should not preclude additional follow-up of suspicious palpable abnormalities. Note on [place] scores and lifetime risk: 1. A [place] score greater than 3% is considered moderate risk. If this is the case, consider specialist referral to assess eligibility for a risk reducing agent. 2. If overall lifetime risk for the development of breast cancer is 20% or higher, the patient may qualify for future screening with alternating mammogram and breast MRI. [facility], , 10/25/2024 6:04 PM. Electronically signed and approved by: Dulce De M.D. Radiologist
== END | disposition home or self-care (01) ==
LOC: RADMAMWWP 13:45
PROVIDERS: ATTEND Family Medicine
DX: Z12.31 Encounter for screening mammogram for malignant neoplasm of breast (principal); R92.313 Mammographic fatty tissue density, bilateral breasts; Z78.0 Asymptomatic menopausal state; Z80.3 Family history of malignant neoplasm of breast
CPT/HCPCS: 77063; 77067